=== PATIENT | female | born 1985 | race African-American/Black ===

== ENCOUNTER → 2016-10-05 | Outpatient (REF) | payer OTHER ==
[~2016-10-05] MED LIST: *ANUSOI TOP; COLA100C2 OR; IBUP800T OR; PERC5TAB8 OR; PRENTAB8 PO
== END | disposition home or self-care (01) ==
LOC: M SFHCLERA 13:24
PROVIDERS: ATTEND Physician Assistant
DX: J02.9 Acute pharyngitis, unspecified (principal)

== ENCOUNTER 2016-12-17 12:09 | Emergency (ER) | payer OTHER ==
[~2016-12-17] VITALS: Ht 157.5 cm; Wt 66.7 kg
[2016-12-17] MEDS ORDERED: TRINTAB PO (12:34)
[2016-12-17] MEDS ORDERED: MECL-86 PO (12:34)
[2016-12-17] MEDS ORDERED: AZITHROMYCIN 250 MG TAB PO ONE (14:30)
[2016-12-17] MEDS ORDERED: MUCI600T34 PO (14:40)
[2016-12-17] MEDS ORDERED: CLAR1TAB2 PO ×2 (14:40→14:49)
[2016-12-17] MEDS ORDERED: AFRI0.056 ×2 (14:40→14:49)
[2016-12-17] MEDS ORDERED: ZITHTAB PO (14:40)
[2016-12-17] MEDS ORDERED: IBUP80TA PO (14:44)
[2016-12-17] MEDS ORDERED: IBUPROFEN 800 MG TAB PO ONE (14:45)
[2016-12-17 15:13] VITALS: BP 152/108
== END 2016-12-17 15:14 | disposition home or self-care (01) ==
LOC: M ED 14:19
DX: J01.90 Acute sinusitis, unspecified (principal); H66.90 Otitis media, unspecified, unspecified ear